=== PATIENT | female | born 1980 ===

== ENCOUNTER 2021-03-16 03:16 | Emergency (ER) | payer SELFPAY ==
[2021-03-16 03:25] VITALS: BP 146/80
== END 2021-03-16 20:10 | disposition left against medical advice (07) ==
LOC: ED 03:16
DX: Z76.0 Encounter for issue of repeat prescription (principal); Z53.21 Procedure and treatment not carried out due to patient leaving prior to being seen by health care provider

== ENCOUNTER 2021-03-16 22:38 | Emergency (ER) | payer SELFPAY ==
--- NOTE | 2021-03-16 23:31 | Emergency Department Report ---
ED Psych HPI - General Chief Complaint: Psych Stated Complaint: PSYCH Time Seen by Provider: 03/16/21 23:18 Source: patient, EMS Mode of arrival: Ambulatory Limitations: No Limitations - History of Present Illness Initial Comments: 40-year-old female with a past medical history of bipolar and schizophrenia presents to the hospital for desired medication adjustment/prescription by family as per triage complaint. Patient was seen here earlier today but left after triage. This morning her complaint was [facility] and unable to fill Geodon prescription. Patient denies having bipolar schizophrenia. She states that she takes iron and stool softeners for anemia. She denies hearing voices, suicidal ideation, homicidal ideation. Patient states she is here because she needs some fluids and she is currently however, she is unable to tell me how she is. She also denies being released from [facility] recently. She states she resides at a townhouse with her 5 children and grandchild. He denies any physical complaints. She is unvaccinated for Covid and denies any infectious symptoms - Related Data Allergies Allergy/AdvReac Type Severity Reaction Status Date / Time No Known Allergies Allergy Verified 03/16/21 23:11 ED Review of Systems ROS: Stated complaint: PSYCH Other details as noted in HPI Comment: All other systems reviewed and negative ED Past Medical Hx - Past Medical History Hx Psychiatric Treatment: Yes (BIPOLAR, SCHIZOPHRENIC) ED Physical Exam - General Limitations: No Limitations - Other Other exam information: General: No acute distress Head: Atraumatic Eyes: normal appearance ENT: Moist mucous membranes Neck: Normal appearance, no midline tenderness Chest: Clear to auscultation bilaterally CV: Regular rate and rhythm Abdomen: Soft, normal bowel sounds, nontender, nondistended, no rebound or guarding Back: Normal inspection Extremity: Normal inspection, full range of motion Neuro: Alert O x 3, no facial asymmetry, speech clear, no gross motor sensory deficit Psych: Calm, cooperative, possible delusions Skin: No rash ED Course Vital Signs 03/16/21 03/17/21 03/17/21 23:11 00:11 00:45 Temperature 98.3 F 98.3 F Pulse Rate 90 104 H Respiratory 18 18 Rate Blood Pressure 132/80 131/87 [Left] O2 Sat by Pulse 99 100 100 Oximetry - Reevaluation(s) Reevaluation #1: 03/17/21 02:42 As informed by nurse that patient is screaming repeatedly that she is god, restless, and approaching the nursing window frequently. Evelyn and Sam ordered ED Medical Decision Making - Lab Data Result diagrams: 03/16/21 23:36 03/16/21 23:36 Lab Results 03/16/21 03/16/21 03/16/21 Range/Units 23:36 23:36 23:36 WBC 5.4 (4.5-11.0) K/mm3 RBC 4.13 (3.65-5.03) M/mm3 Hgb 11.1 (10.1-14.3) gm/dl Hct 35.4 (30.3-42.9) % MCV 86 (79-97) fl MCH 27 L (28-32) pg MCHC 31 (30-34) % RDW 14.6 (13.2-15.2) % Plt Count 366 (140-440) K/mm3 Lymph % (Auto) 42.4 H (13.4-35.0) % [place] % (Auto) 8.8 H (0.0-7.3) % Eos % (Auto) 5.0 H (0.0-4.3) % Baso % (Auto) 0.3 (0.0-1.8) % Lymph # (Auto) 2.3 (1.2-5.4) K/mm3 [place] # (Auto) 0.5 (0.0-0.8) K/mm3 Eos # (Auto) 0.3 (0.0-0.4) K/mm3 Baso # (Auto) 0.0 (0.0-0.1) K/mm3 Seg Neutrophils % 43.5 (40.0-70.0) % Seg Neutrophils # 2.4 (1.8-7.7) K/mm3 Sodium 143 (137-145) mmol/L Potassium 3.3 L (3.6-5.0) mmol/L Chloride 106.2 (98-107) mmol/L Carbon Dioxide 24 (22-30) mmol/L Anion Gap 16 mmol/L BUN 10 (7-17) mg/dL Creatinine 0.9 (0.6-1.2) mg/dL Estimated GFR > 60 ml/min BUN/Creatinine Ratio 11 % Glucose 98 (65-100) mg/dL Calcium 8.9 (8.4-10.2) mg/dL HCG, Qual (Negative) Urine Color (Yellow) Urine Turbidity (Clear) Urine pH (5.0-7.0) Ur Specific [place] (1.003-1.030) Urine Protein (Negative) mg/dL Urine Glucose (UA) (Negative) mg/dL Urine Ketones (Negative) mg/dL Urine Blood (Negative) Urine Nitrite (Negative) Urine Bilirubin (Negative) Urine Urobilinogen (<2.0) mg/dL Ur Leukocyte Esterase (Negative) Urine WBC (Auto) (0.0-6.0) /HPF Urine RBC (Auto) (0.0-6.0) /HPF U Epithel Cells (Auto) (0-13.0) /HPF Urine Bacteria (Auto) (Negative) /HPF Amorphous Crystals Urine Mucus /HPF Salicylates < 0.3 L (2.8-20.0) mg/dL Urine Opiates Screen Urine Methadone Screen Acetaminophen (10.0-30.0) ug/mL Ur Barbiturates Screen Ur Phencyclidine Scrn Ur Amphetamines Screen U Benzodiazepines Scrn Urine Cocaine Screen U Marijuana (THC) Screen Drugs of Abuse Note Plasma/Serum Alcohol (0-0.07) % 03/16/21 03/16/21 03/16/21 Range/Units 23:36 23:36 23:36 WBC (4.5-11.0) K/mm3 RBC (3.65-5.03) M/mm3 Hgb (10.1-14.3) gm/dl Hct (30.3-42.9) % MCV (79-97) fl MCH (28-32) pg MCHC (30-34) % RDW (13.2-15.2) % Plt Count (140-440) K/mm3 Lymph % (Auto) (13.4-35.0) % [place] % (Auto) (0.0-7.3) % Eos % (Auto) (0.0-4.3) % Baso % (Auto) (0.0-1.8) % Lymph # (Auto) (1.2-5.4) K/mm3 [place] # (Auto) (0.0-0.8) K/mm3 Eos # (Auto) (0.0-0.4) K/mm3 Baso # (Auto) (0.0-0.1) K/mm3 Seg Neutrophils % (40.0-70.0) % Seg Neutrophils # (1.8-7.7) K/mm3 Sodium (137-145) mmol/L Potassium (3.6-5.0) mmol/L Chloride (98-107) mmol/L Carbon Dioxide (22-30) mmol/L Anion Gap mmol/L BUN (7-17) mg/dL Creatinine (0.6-1.2) mg/dL Estimated GFR ml/min BUN/Creatinine Ratio % Glucose (65-100) mg/dL Calcium (8.4-10.2) mg/dL HCG, Qual Negative (Negative) Urine Color (Yellow) Urine Turbidity (Clear) Urine pH (5.0-7.0) Ur Specific [place] (1.003-1.030) Urine Protein (Negative) mg/dL Urine Glucose (UA) (Negative) mg/dL Urine Ketones (Negative) mg/dL Urine Blood (Negative) Urine Nitrite (Negative) Urine Bilirubin (Negative) Urine Urobilinogen (<2.0) mg/dL Ur Leukocyte Esterase (Negative) Urine WBC (Auto) (0.0-6.0) /HPF Urine RBC (Auto) (0.0-6.0) /HPF U Epithel Cells (Auto) (0-13.0) /HPF Urine Bacteria (Auto) (Negative) /HPF Amorphous Crystals Urine Mucus /HPF Salicylates (2.8-20.0) mg/dL Urine Opiates Screen Urine Methadone Screen Acetaminophen 5.0 L (10.0-30.0) ug/mL Ur Barbiturates Screen Ur Phencyclidine Scrn Ur Amphetamines Screen U Benzodiazepines Scrn Urine Cocaine Screen U Marijuana (THC) Screen Drugs of Abuse Note Plasma/Serum Alcohol < 0.01 (0-0.07) % 03/17/21 03/17/21 Range/Units 00:46 00:46 WBC (4.5-11.0) K/mm3 RBC (3.65-5.03) M/mm3 Hgb (10.1-14.3) gm/dl Hct (30.3-42.9) % MCV (79-97) fl MCH (28-32) pg MCHC (30-34) % RDW (13.2-15.2) % Plt Count (140-440) K/mm3 Lymph % (Auto) (13.4-35.0) % [place] % (Auto) (0.0-7.3) % Eos % (Auto) (0.0-4.3) % Baso % (Auto) (0.0-1.8) % Lymph # (Auto) (1.2-5.4) K/mm3 [place] # (Auto) (0.0-0.8) K/mm3 Eos # (Auto) (0.0-0.4) K/mm3 Baso # (Auto) (0.0-0.1) K/mm3 Seg Neutrophils % (40.0-70.0) % Seg Neutrophils # (1.8-7.7) K/mm3 Sodium (137-145) mmol/L Potassium (3.6-5.0) mmol/L Chloride (98-107) mmol/L Carbon Dioxide (22-30) mmol/L Anion Gap mmol/L BUN (7-17) mg/dL Creatinine (0.6-1.2) mg/dL Estimated GFR ml/min BUN/Creatinine Ratio % Glucose (65-100) mg/dL Calcium (8.4-10.2) mg/dL HCG, Qual (Negative) Urine Color Yellow (Yellow) Urine Turbidity Clear (Clear) Urine pH 5.0 (5.0-7.0) Ur Specific [place] 1.014 (1.003-1.030) Urine Protein <15 mg/dl (Negative) mg/dL Urine Glucose (UA) Neg (Negative) mg/dL Urine Ketones Neg (Negative) mg/dL Urine Blood Sm (Negative) Urine Nitrite Neg (Negative) Urine Bilirubin Neg (Negative) Urine Urobilinogen < 2.0 (<2.0) mg/dL Ur Leukocyte Esterase Neg (Negative) Urine WBC (Auto) 2.0 (0.0-6.0) /HPF Urine RBC (Auto) 4.0 (0.0-6.0) /HPF U Epithel Cells (Auto) < 1.0 (0-13.0) /HPF Urine Bacteria (Auto) 1+ (Negative) /HPF Amorphous Crystals Few Urine Mucus Few /HPF Salicylates (2.8-20.0) mg/dL Urine Opiates Screen Negative Urine Methadone Screen Negative Acetaminophen (10.0-30.0) ug/mL Ur Barbiturates Screen Negative Ur Phencyclidine Scrn Negative Ur Amphetamines Screen Negative U Benzodiazepines Scrn Negative Urine Cocaine Screen Negative U Marijuana (THC) Screen Negative Drugs of Abuse Note Disclamer Plasma/Serum Alcohol (0-0.07) % - Medical Decision Making 40-year female the past medical history of bipolar disorder and schizophrenia as per medical record presents to the hospital with delusions. Patient definitely has poor insight. She denies any psychiatric history. She also [facility] being [facility] which contradicts the medical record. She is expressed that she is today which has been disproven by test. She also having delusions that she is God. 1013 signed. Patient is medically cleared. P.o. potassium provided for mild hypokalemia. Patient required IM sedation due to escalating behavior while in the ED Critical Care Time: No Critical care attestation.: If time is entered above; I have spent that time in minutes in the direct care o f this critically ill patient, excluding procedure time. ED Disposition Clinical Impression: Delusions, Bipolar disorder, Schizophrenia, Medical clearance for psychiatric admission Disposition: [address] [place] [address] Is pt being admited?: No Condition: Stable Referrals: PRIMARY CARE, [Primary Care Provider] - 3-5 Days
[2021-03-17 00:06] LABS: Basophils % (Auto) 0.3 % (0.0-1.8); Eosinophils # (Auto) 0.3 K/mm3 (0.0-0.4); Hematocrit 35.4 % (30.3-42.9); Hemoglobin 11.1 gm/dl (10.1-14.3); Lymphocytes # (Auto) 2.3 K/mm3 (1.2-5.4); Lymphocytes % (Auto) 42.4 % (13.4-35.0); Mean Corpuscular HGB Conc 31 % (30-34); Mean Corpuscular Volume 86 fl (79-97); Monocytes # (Auto) 0.5 K/mm3 (0.0-0.8); Monocytes % (Auto) 8.8 % (0.0-7.3); Platelet Count 366 K/mm3 (140-440); Red Blood Count 4.13 M/mm3 (3.65-5.03); Red Cell Distribution Width 14.6 % (13.2-15.2)
[2021-03-17 00:18] LABS: BUN/Creatinine Ratio 11; Blood Urea Nitrogen 10 mg/dL (7-17); Calcium 8.9 mg/dL (8.4-10.2); Hemolysis Index 5
[2021-03-17] MEDS ORDERED: POTASSIUM CHLORIDE ER 20 MEQ TAB PO ONE (01:24)
[2021-03-17 01:54] LABS: Amorphous Crystals,Urine Few; Bacteria,Urine 1+ /HPF (Negative); Bilirubin,Urine NEG (Negative); Blood,Urine SM (Negative); Color,Urine Yellow (Yellow); Mucus,Urine FEW /HPF; Protein,Urine <15 mg/dL mg/dL (Negative); Urobilinogen,Urine < 2.0 mg/dL (<2.0)
[2021-03-17 02:00] LABS: Amphetamine Screen,Urine Negative; Benzodiazepines Screen,Urine Negative; Cannabinoid Screen,Urine Negative; Cocaine Screen,Urine Negative; Methadone Screen,Urine Negative; Opiate Screen,Urine Negative
[2021-03-17] MEDS ORDERED: LORazepam 2 MG/ML VIAL IM ONE ×2 (02:41→22:24)
[2021-03-17] MEDS ORDERED: ZIPRASIDONE MESYLATE 20 MG VIAL IM ONE (02:41)
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
--- NOTE | 2021-03-17 11:53 | Event Note ---
Date: 03/17/21 S: No events reported overnight O: Vital Signs - 24 hr 03/16/21 03/17/21 03/17/21 23:11 00:11 00:45 Temperature 98.3 F 98.3 F Pulse Rate 90 104 H Respiratory 18 18 Rate Blood Pressure 132/80 131/87 [Left] O2 Sat by Pulse 99 100 100 Oximetry 03/17/21 03:21 Temperature 98.4 F Pulse Rate 81 Respiratory 18 Rate Blood Pressure 98/55 [Left] O2 Sat by Pulse 99 Oximetry A: Schizophrenia P: 1013, awaiting inpatient psych
[2021-03-17] MEDS: DIVALPROEX DR 125 MG TAB PO SCH (13:22)
[2021-03-17] MEDS: ZIPRASIDONE MESYLATE 20 MG VIAL IM PRN ×2 (15:46→22:30)
[2021-03-17 22:18] LABS: Basophils % (Auto) 0.3 % (0.0-1.8); Eosinophils # (Auto) 0.2 K/mm3 (0.0-0.4); Eosinophils % (Auto) 3.4 % (0.0-4.3); Hematocrit 34.1 % (30.3-42.9); Mean Corpuscular HGB Conc 32 % (30-34); Mean Corpuscular Volume 86 fl (79-97); Monocytes # (Auto) 0.7 K/mm3 (0.0-0.8); Monocytes % (Auto) 10.9 % (0.0-7.3); Platelet Count 335 K/mm3 (140-440); Red Blood Count 3.95 M/mm3 (3.65-5.03); Red Cell Distribution Width 14.6 % (13.2-15.2)
[2021-03-17 22:36] LABS: Blood Urea Nitrogen 14 mg/dL (7-17); Calcium 9.2 mg/dL (8.4-10.2); Hemolysis Index 3
[2021-03-17 23:22] LABS: BUN/Creatinine Ratio 16
--- NOTE | 2021-03-18 11:16 | Event Note ---
Date: 03/18/21 pt is stable vss no distress, awaiting placement
--- NOTE | 2021-03-18 11:22 | Progress Note ---
Subjective - Reason for Consult Consult date: 03/18/21 Reason for consult: mental health evaluation - Chief Complaint Chief complaint: The patient was seen this morning. She continues to be disorganized. She endorses auditory/visual hallucinations stating voices are saying " I'm God and seeing AIDS/HIV." REVIEW OF SYSTEMS Constitutional: Negative for weight loss ENT: Negative for stridor Respiratory: Negative for cough or hemoptysis All other systems reviewed and are negative MENTAL STATUS EXAMINATION General Appearance and Behavior: Age appropriate, good hygiene, wearing appropriate clothes, cooperative polite with questioning. Cooperation: cooperative Psychomotor Behavior: Normal Mood: paranoid/ confused Affect and affective range:congruent Thought Process:circumstantial Thought Content:Confused Speech:Normal Intellectual Functioning: Average Suicidal Ideation:Denies Homicidal Ideation: Denies Hallucination: Auditory/visual Impulse Control:Normal Insight and Judgment:limited insight and poor judgment Memory: abnormal Attention:Distractible Orientation: Alert and oriented Diagnoses: Schizophrenia (1) Treatment Plan: Continue - Home Medications. 1013 Continue Zyprexa 5mg po BID Continue Depakote 250mg po BID Patient should be compliant with medications and not to use drugs and not to drink alcohol. PSYCHOTHERAPY: Supportive psychotherapy provided MEDICAL: Per primary team DELIRIUM PRECAUTIONS: Please re-orient patient frequently, keep lights on during the day, and minimize benzodiazepines and opiates as these medications could worsen patient's confusion. 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 FOLLOW-UP: Will follow. Thank you for the consult. Please contact with any questions and/or concerns. Mental Status Exam - Vital signs Last Vital Signs Temp 97.8 F 03/18/21 02:54 Pulse 80 03/18/21 02:54 Resp 18 03/18/21 02:54 BP 107/71 03/18/21 02:54 Pulse Ox 100 03/18/21 02:54
[2021-03-18] MEDS: ZIPRASIDONE MESYLATE 20 MG VIAL IM PRN (12:43)
[2021-03-18] MEDS: DIVALPROEX DR 250 MG TAB PO SCH ×2 (12:44→22:36)
[2021-03-18 20:32] VITALS: BP 145/81
[2021-03-18] MEDS: DIVALPROEX DR 125 MG TAB PO SCH (22:40)
[2021-03-19] MEDS: ZIPRASIDONE MESYLATE 20 MG VIAL IM PRN (01:59)
[2021-03-19] MEDS ORDERED: HALOPERIDOL LACTATE 5 MG/1 ML INJ IM PRN (08:45)
[2021-03-19] MEDS ORDERED: LORazepam 2 MG/ML VIAL IM PRN (08:45)
[2021-03-19] MEDS: DIVALPROEX DR 250 MG TAB PO SCH (09:43)
--- NOTE | 2021-03-19 10:39 | Progress Note ---
Subjective Date of service: 03/19/21 Subjective Comment: The patient was seen this morning. She is in seclusion, she continues to be loud and talkative. The patient presents with flight of ideas and disorganized thoughts. REVIEW OF SYSTEMS Constitutional: Negative for weight loss ENT: Negative for stridor Respiratory: Negative for cough or hemoptysis All other systems reviewed and are negative MENTAL STATUS EXAMINATION General Appearance and Behavior: Age appropriate, good hygiene, wearing appropriate clothes, cooperative polite with questioning. Cooperation: cooperative Psychomotor Behavior: Normal Mood: paranoid/ confused Affect and affective range:congruent Thought Process:circumstantial Thought Content:Confused Speech:hyperverbal Intellectual Functioning: Average Suicidal Ideation:Denies Homicidal Ideation: Denies Hallucination: Auditory/visual Impulse Control:Normal Insight and Judgment:limited insight and poor judgment Memory: abnormal Attention:Distractible Orientation: Alert and oriented Diagnoses: Schizophrenia (1) Treatment Plan: Continue - Home Medications. 1013 Continue Zyprexa 5mg po BID start Depakote 500 mg po BID Patient should be compliant with medications and not to use drugs and not to drink alcohol. PSYCHOTHERAPY: Supportive psychotherapy provided MEDICAL: Per primary team DELIRIUM PRECAUTIONS: Please re-orient patient frequently, keep lights on during the day, and minimize benzodiazepines and opiates as these medications could worsen patient's confusion. 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 FOLLOW-UP: Will follow. Thank you for the consult. Please contact with any questions and/or concerns. Mental Status Exam Medications and Allergies Allergies Allergy/AdvReac Type Severity Reaction Status Date / Time No Known Allergies Allergy Verified 03/16/21 23:11 Active Meds: Active Medications Divalproex Sodium (Divalproex Dr 250 Mg Tab) 250 mg PO BID [facility] Last Admin: 03/19/21 09:43 Dose: 250 mg Haloperidol Lactate (Haloperidol Lactate 5 Mg/1 Ml Inj) 5 mg IM Q6HR PRN PRN Reason: Agitation Last Admin: 03/19/21 08:58 Dose: 5 mg Lorazepam (Lorazepam 2 Mg/Ml Vial) 2 mg IM Q4HR PRN PRN Reason: Agitation Last Admin: 03/19/21 08:57 Dose: 2 mg Olanzapine (Olanzapine 5 Mg Tab) 5 mg PO BID [facility] Last Admin: 03/19/21 09:44 Dose: 5 mg Results - Results Labs/Vitals: Laboratory Last Values WBC 6.5 K/mm3 (4.5-11.0) 03/17/21 21:53 RBC 3.95 M/mm3 (3.65-5.03) 03/17/21 21:53 Hgb 11.0 gm/dl (10.1-14.3) 03/17/21 21:53 Hct 34.1 % (30.3-42.9) 03/17/21 21:53 MCV 86 fl (79-97) 03/17/21 21:53 MCH 28 pg (28-32) 03/17/21 21:53 MCHC 32 % (30-34) 03/17/21 21:53 RDW 14.6 % (13.2-15.2) 03/17/21 21:53 Plt Count 335 K/mm3 (140-440) 03/17/21 21:53 Lymph % (Auto) 46.0 % (13.4-35.0) H 03/17/21 21:53 [place] % (Auto) 10.9 % (0.0-7.3) H 03/17/21 21:53 Eos % (Auto) 3.4 % (0.0-4.3) 03/17/21 21:53 Baso % (Auto) 0.3 % (0.0-1.8) 03/17/21 21:53 Lymph # (Auto) 3.0 K/mm3 (1.2-5.4) 03/17/21 21:53 [place] # (Auto) 0.7 K/mm3 (0.0-0.8) 03/17/21 21:53 Eos # (Auto) 0.2 K/mm3 (0.0-0.4) 03/17/21 21:53 Baso # (Auto) 0.0 K/mm3 (0.0-0.1) 03/17/21 21:53 Seg Neutrophils % 39.4 % (40.0-70.0) L 03/17/21 21:53 Seg Neutrophils # 2.5 K/mm3 (1.8-7.7) 03/17/21 21:53 Sodium 144 mmol/L (137-145) 03/17/21 21:53 Potassium 4.4 mmol/L (3.6-5.0) D 01/24/22 21:53 Chloride 106.3 mmol/L (98-107) 03/17/21 21:53 Carbon Dioxide 26 mmol/L (22-30) 03/17/21 21:53 Anion Gap 16 mmol/L 03/17/21 21:53 BUN 14 mg/dL (7-17) 03/17/21 21:53 Creatinine 0.9 mg/dL (0.6-1.2) 03/17/21 21:53 Estimated GFR > 60 ml/min 03/17/21 21:53 BUN/Creatinine Ratio 16 % 03/17/21 21:53 Glucose 89 mg/dL (65-100) 03/17/21 21:53 Calcium 9.2 mg/dL (8.4-10.2) 03/17/21 21:53 HCG, Qual Negative (Negative) 03/16/21 23:36 Urine Color Yellow (Yellow) 03/17/21 00:46 Urine Turbidity Clear (Clear) 03/17/21 00:46 Urine pH 5.0 (5.0-7.0) 03/17/21 00:46 Ur Specific [employer] 1.014 (1.003-1.030) 03/17/21 00:46 Urine Protein <15 mg/dl mg/dL (Negative) 03/17/21 00:46 Urine Glucose (UA) Neg mg/dL (Negative) 03/17/21 00:46 Urine Ketones Neg mg/dL (Negative) 03/17/21 00:46 Urine Blood Sm (Negative) 03/17/21 00:46 Urine Nitrite Neg (Negative) 03/17/21 00:46 Urine Bilirubin Neg (Negative) 03/17/21 00:46 Urine Urobilinogen < 2.0 mg/dL (<2.0) 03/17/21 00:46 Ur Leukocyte Esterase Neg (Negative) 03/17/21 00:46 Urine WBC (Auto) 2.0 /HPF (0.0-6.0) 03/17/21 00:46 Urine RBC (Auto) 4.0 /HPF (0.0-6.0) 03/17/21 00:46 U Epithel Cells (Auto) < 1.0 /HPF (0-13.0) 03/17/21 00:46 Urine Bacteria (Auto) 1+ /HPF (Negative) 03/17/21 00:46 Amorphous Crystals Few 03/17/21 00:46 Urine Mucus Few /HPF 03/17/21 00:46 Salicylates < 0.3 mg/dL (2.8-20.0) L 03/16/21 23:36 Urine Opiates Screen Negative 03/17/21 00:46 Urine Methadone Screen Negative 03/17/21 00:46 Acetaminophen 5.0 ug/mL (10.0-30.0) L 03/16/21 23:36 Ur Barbiturates Screen Negative 03/17/21 00:46 Ur Phencyclidine Scrn Negative 03/17/21 00:46 Ur Amphetamines Screen Negative 03/17/21 00:46 U Benzodiazepines Scrn Negative 03/17/21 00:46 Urine Cocaine Screen Negative 03/17/21 00:46 U Marijuana (THC) Screen Negative 03/17/21 00:46 Drugs of Abuse Note Disclamer 03/17/21 00:46 Plasma/Serum Alcohol < 0.01 % (0-0.07) 03/16/21 23:36 SARS-CoV-2 (PCR) Negative (Negative) 03/17/21 09:00 Last Vital Signs Temp 98.2 F 03/18/21 20:32 Pulse 89 03/18/21 20:32 Resp 18 03/18/21 20:32 BP 145/81 03/18/21 20:32 Pulse Ox 98 03/18/21 20:32
[2021-03-19] MEDS ORDERED: DIVALPROEX DR 500 MG TAB PO SCH (11:00)
--- NOTE | 2021-03-19 11:37 | Emergency Department Report ---
Blank Doc - Documentation Documentation: We are still awaiting psychiatric placement. Patient still verbalizes thoughts of self-harm. There are no physical complaints. Patient has been medically cleared.
== END 2021-03-19 15:33 ==
LOC: ED 22:38
DX: F22 Delusional disorders (principal); F31.9 Bipolar disorder, unspecified; F20.9 Schizophrenia, unspecified
CPT/HCPCS: 36415; 80048; 80307; 81001; 84703; 85025; 96372; 99285; J1630; J2060; J3486; U0003; 80320; G0480

== ENCOUNTER 2021-11-15 16:01 | Emergency (ER) | payer SELFPAY ==
[2021-11-15] MEDS ORDERED: ZIPRASIDONE MESYLATE 20 MG VIAL IM ONE ×2 (16:26→22:58)
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
[2021-11-15 17:42] LABS: Basophils # (Auto) 0.1 K/mm3 (0.0-0.1); Basophils % (Auto) 1.2 % (0.0-1.8); Eosinophils # (Auto) 0.2 K/mm3 (0.0-0.4); Eosinophils % (Auto) 2.1 % (0.0-4.3); Hematocrit 37.6 % (30.3-42.9); Hemoglobin 12.3 gm/dl (10.1-14.3); Lymphocytes # (Auto) 2.6 K/mm3 (1.2-5.4); Lymphocytes % (Auto) 28.2 % (13.4-35.0); Mean Corpuscular HGB Conc 33 % (30-34); Mean Corpuscular Volume 85 fl (79-97); Monocytes # (Auto) 0.7 K/mm3 (0.0-0.8); Monocytes % (Auto) 7.4 % (0.0-7.3); Platelet Count 469 K/mm3 (140-440); Red Blood Count 4.41 M/mm3 (3.65-5.03); Red Cell Distribution Width 16.2 % (13.2-15.2)
[2021-11-15 18:33] LABS: Alanine Aminotransferase 10 units/L (7-56); Albumin 4.7 g/dL (3.9-5); BUN/Creatinine Ratio 11; Blood Urea Nitrogen 10 mg/dL (7-17); Calcium 10.4 mg/dL (8.4-10.2); Hemolysis Index 9
[2021-11-15 23:47] LABS: Bilirubin,Urine NEG (Negative); Blood,Urine SM (Negative); Color,Urine Yellow (Yellow); Hyaline Casts,Urine 1 /LPF; Mucus,Urine FEW /HPF; Protein,Urine <15 mg/dL mg/dL (Negative); Urobilinogen,Urine < 2 mg/dL (<2.0)
[2021-11-15 23:54] LABS: Amphetamine Screen,Urine PRESUMPTIVE NEGATIVE; Benzodiazepines Screen,Urine PRESUMPTIVE NEGATIVE; Cannabinoid Screen,Urine PRESUMPTIVE NEGATIVE; Cocaine Screen,Urine PRESUMPTIVE NEGATIVE; Methadone Screen,Urine PRESUMPTIVE NEGATIVE; Opiate Screen,Urine PRESUMPTIVE NEGATIVE
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
[2021-11-16] MEDS: DIVALPROEX DR 125 MG TAB PO SCH ×3 (10:56→21:54)
--- NOTE | 2021-11-16 12:04 | Event Note ---
Date: 11/16/21 S: No events reported overnight O: Vital Signs - 8 hr 11/16/21 10:00 Temperature 98.0 F Pulse Rate 87 Respiratory 18 Rate Blood Pressure 144/100 [Left] O2 Sat by Pulse 99 Oximetry A: Schizophrenia P: 1013/awaiting inpatient psych
[2021-11-16] MEDS: traZODone 50 MG TAB PO SCH (21:54)
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
[2021-11-17] MEDS: DIVALPROEX DR 125 MG TAB PO SCH ×3 (10:28→21:45)
--- NOTE | 2021-11-17 10:44 | Event Note ---
Date: 11/17/21 VSS , NO DISTRESS , MEDICALLY CLEARED ASSSESSED BY [facility] , CONT 1013 AWAITING PLACEMENT
[2021-11-17] MEDS ORDERED: HALOPERIDOL LACTATE 5 MG/1 ML INJ IM PRN (11:00)
[2021-11-17] MEDS: traZODone 50 MG TAB PO SCH (21:45)
[2021-11-18] MEDS: DIVALPROEX DR 125 MG TAB PO SCH (09:39)
[2021-11-18 09:52] VITALS: BP 139/82
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
== END 2021-11-18 11:02 ==
LOC: EEVIPCON 16:01 → ED 16:01
DX: F20.9 Schizophrenia, unspecified (principal); Z20.822 Contact with and (suspected) exposure to COVID-19; F31.9 Bipolar disorder, unspecified; Z79.899 Other long term (current) drug therapy
CPT/HCPCS: 36415; 80053; 80307; 81001; 84703; 85025; 96372; 99285; J3486; U0003; 80320; G0480